=== PATIENT | female | born 1985 | race Two or more races ===

== ENCOUNTER 2018-02-11 14:09 | Inpatient (IN) | payer OTHER ==
[2018-02-11] MEDS ORDERED: AMPICILLIN SODIUM 2 GM VIAL ONE (14:57)
[2018-02-11] MEDS: DEXTROSE 5%-LACTATED RINGERS 1,000 ML IV SCH (15:00)
[2018-02-11] MEDS ORDERED: AMPICILLIN - 2 GM in SODIUM CHLORIDE 100 ML IVPB ONE (15:00)
[2018-02-11 15:49] VITALS: BMI 31.2
[2018-02-11 16:23] LABS: BASO % 0.5 % (0-2.0); EOS % 2.3 % (0-4.5); HEMATOCRIT 39.4 % (32.4-45.2); HEMOGLOBIN 12.6 GM/dL (10.7-15.3); LYMPH % 18.1 % (8-40); MCH 25.2 pg (25.7-33.7); MEAN CELL VOLUME 78.7 fl (80-96); MEAN PLT VOLUME 11.6 fl (7.5-11.1); MONO % 4.7 % (3.8-10.2); NEUT % 74.4 % (42.8-82.8); PLATELET COUNT 134 K/MM3 (134-434); RBC 5.01 M/mm3 (3.60-5.2); RDW 17.4 % (11.6-15.6); WHITE BLOOD COUNT 6.8 K/mm3 (4.0-10.0)
[2018-02-11 16:37] LABS: INR 0.96 (0.83-1.09); PROTHROMBIN TIME (PATIENT) 11.3 SEC (9.7-13.0)
[2018-02-11 16:39] LABS: ACTIVATED PTT 26.5 SECONDS (25.2-36.5)
[2018-02-11] MEDS ORDERED: TUBERCULIN PPD 5 TU/0.1ML SYRINGE (IN PATIENT USE ONLY) ID ONE (17:00)
[2018-02-11 17:15] LABS: ANION GAP 9 MMOL/L (8-16); BLOOD UREA NITROGEN 8 mg/dL (7-18); CALCIUM 8.5 mg/dL (8.5-10.1); CHLORIDE 102 mmol/L (98-107); CO2 26 mmol/L (21-32); CREATININE 0.6 mg/dL (0.55-1.3); GLUCOSE,RANDOM 67 mg/dL (74-106); SODIUM 136 mmol/L (136-145)
[2018-02-11] MEDS ORDERED: BUTORPHANOL TARTRATE 1 MG/ML VIAL IVPUSH PRN (18:00)
[2018-02-11] MEDS ORDERED: PROMETHAZINE HCL 25 MG/1 ML VIAL IVPB ONE (18:00)
--- NOTE | 2018-02-11 18:09 | PN ---
Progress Note (short form) - Note Progress Note: cx 1 cm 80 vx -2 mr, fhr cat 1, irregular mild contraction, GBS positve, started on amp. pitocin vs expectant management discussed , agrred to wait for spontaneous labor
[2018-02-11] MEDS ORDERED: AMPICILLIN SODIUM 1 GM VIAL ONE ×2 (18:12→22:25)
[2018-02-11] MEDS: AMPICILLIN - 1 GM in SODIUM CHLORIDE 100 ML IVPB SCH ×2 (18:33→23:00)
--- NOTE | 2018-02-11 19:19 | HP ---
Past Medical History - Primary Care Physician PCP:: Matthew Villeda - Admission Chief Complaint: 40.4 wekks, prom History of Present Illness: 32 yo f 40.2 weeks,c/o rom , clear fluid ,with mild low abdominal cramps, no fever, no bleeding, cx 1 cm,80 vx -2 mr, clear fhr cat 1, irregular comntraction, expectant management vs induction discussed , rba to each explained History Source: Patient Limitations to Obtaining History: No Limitations - Past Medical History Pulmonary: Yes: Asthma ...: 1 ...Para: 0 ...LMP: 05/03/17 ... Weeks Gestation by Dates: 40.4 ...EDC by Dates: 02/07/18 ...EDC by Sono: 02/07/18 - Past Surgical History Hx Myomectomy: No Hx Transabdominal Cerclage: No - Smoking History Smoking history: Never smoked Have you smoked in the past 12 months: No - Alcohol/Substance Use Hx Alcohol Use: No - Social History Usual Living Arrangement: Yes: With Spouse History of Recent Travel: No Home Medications - Allergies Allergies/Adverse Reactions: Allergies Allergy/AdvReac Type Severity Reaction Status Date / Time No Known Drug Allergies Allergy Verified 02/11/18 15:13 - Home Medications Home Medications: Ambulatory Orders Advair 250-50 Diskus 2 inh PO PRN 02/11/18 Albuterol Sulfate 2 inh PO PRN 02/11/18 Vitamins (Sjr) - 1 tab PO DAILY 02/11/18 Review of Systems - Review of Systems Constitutional: reports: No Symptoms Eyes: reports: No Symptoms HENT: reports: No Symptoms Neck: reports: No Symptoms Gastrointestinal: reports: No Symptoms Genitourinary: reports: No Symptoms Breasts: reports: No Symptoms Reported Musculoskeletal: reports: No Symptoms Neurological: reports: No Symptoms Endocrine: reports: No Symptoms Hematology/Lymphatic: reports: No Symptoms Psychiatric: reports: No Symptoms Physical Exam - Maternity Vital Signs: Vital Signs Temperature 98.2 F 02/11/18 18:00 Pulse Rate 86 02/11/18 19:00 Respiratory Rate 20 02/11/18 19:00 Blood Pressure 113/70 02/11/18 19:00 O2 Sat by Pulse Oximetry (%) Constitutional: Yes: Well Nourished, No Distress, Calm Eyes: Yes: WNL, Conjunctiva Clear, EOM Intact HENT: Yes: WNL, Atraumatic, Normocephalic Neck: Yes: WNL, Supple, Trachea Midline Cardiovascular: Yes: WNL, Regular Rate and Rhythm Breast(s): Yes: WNL - Abdominal Exam/OB Fundal Height: 38 Number of Fetuses: Single Presentation: Vertex Contractions: Yes Regularity: Irregular Intensity: Mild Monitor Mode: External Heart Rate Location: [facility] Category: I Accelerations: Uniform Decelerations: None - Vaginal Exam/OB Vaginal Bleediing: No Speculum Exam: No Dilatation (cm): 1 cm Effacement (%): 80 Amniotic Membrane Status: Ruptured Nitrazine Test: Positive Amniotic Fluid: Yes: Clear Presentation: Vertex/Position Station: -2 - Physical Exam Extremities: Yes: WNL Edema: LLE: Trace, RLE: Trace - Labs Lab Results: CBC, BMP 02/11/18 15:40 02/11/18 15:40 Hemorrhage Risk Assessment - Risk Factors Medium Risk Factors: Yes: None Risk Score: 1 Risk Level: Medium Risk Problem List - Problems (1) Postmaturity , 40-42 weeks gestation Code(s): O48.0 - POST-TERM (2) PROM (premature rupture of membranes) Code(s): O42.90 - WILMA ROM, 7TH0 BETW RUPT & ONST LABR, UNSP WEEKS OF GEST Qualifiers: PROM onset of labor timing: unspecified duration between rupture of membranes and onset of labor PROM gestational age: full term Qualified Code( s): O42.92 - Full-term premature rupture of membranes, unspecified as to length of time between rupture and onset of labor (3) GBS (group B Streptococcus carrier), +RV culture, currently Code(s): O99.820 - STREPTOCOCCUS B CARRIER STATE COMPLICATING Assessment/Plan plan admit, m GBS prophylaxsis observation, if not in labor after midnight will start pitocin management discussed with patient
[2018-02-11] MEDS ORDERED: BUTORPHANOL TARTRATE 1 MG/ML VIAL IVPUSH ONE (22:30)
[2018-02-11] MEDS ORDERED: PROMETHAZINE HCL 25 MG/1 ML VIAL IVPUSH ONE (22:30)
[2018-02-11] MEDS ORDERED: BUTORPHANOL TARTRATE 1 MG/ML VIAL ONE ×2 (22:33)
[2018-02-11] MEDS ORDERED: PROMETHAZINE HCL 25 MG/1 ML VIAL ONE (22:34)
[2018-02-12] MEDS ORDERED: OXYTOCIN 30 UNITS in 0.9% NS 30 UNIT/500 ML INFUS.BAG IVPB SCH (00:15)
[2018-02-12] MEDS ORDERED: OXYTOCIN 30 UNITS in 0.9% NS 30 UNIT/500 ML INFUS.BAG IVPB ONE (00:38)
[2018-02-12] MEDS ORDERED: BUTORPHANOL TARTRATE 1 MG/ML VIAL ONE ×2 (02:44)
[2018-02-12] MEDS ORDERED: PROMETHAZINE HCL 25 MG/1 ML VIAL ONE (02:45)
[2018-02-12] MEDS ORDERED: AMPICILLIN SODIUM 1 GM VIAL ONE ×6 (02:55→23:34)
[2018-02-12] MEDS ORDERED: BUTORPHANOL TARTRATE 1 MG/ML VIAL IVPUSH ONE (03:00)
[2018-02-12] MEDS: AMPICILLIN - 1 GM in SODIUM CHLORIDE 100 ML IVPB SCH ×6 (03:00→23:32)
[2018-02-12] MEDS ORDERED: PROMETHAZINE HCL 25 MG/1 ML VIAL IVPUSH ONE (03:00)
[2018-02-12] MEDS ORDERED: FENTANYL/BUPIVACAINE/NS/PF - PCEA - 50 ML DISP.SYRIN EP ONE ×4 (08:25→19:54)
[2018-02-12] MEDS ORDERED: ELECTROLYTE-148 SOLN 1,000 ML IV SCH ×2 (08:30→23:30)
[2018-02-12] MEDS ORDERED: NALOXONE HCL 0.4 MG/ML VIAL IVPUSH PRN (08:32)
[2018-02-12] MEDS ORDERED: LIDO 2%/EPI 1:200000 PRESRVFRE (20 ML SDVIAL) ONE (08:33)
[2018-02-12] MEDS ORDERED: FENTANYL/BUPIVACAINE/NS/PF - PCEA - 50 ML DISP.SYRIN EP SCH (08:45)
[2018-02-12] MEDS: DEXTROSE 5%-LACTATED RINGERS 1,000 ML IV SCH (15:00)
--- NOTE | 2018-02-12 15:57 | PN ---
Progress Note, Labor Vaginal Exam #1 Labor Exam Date: 02/12/18 Labor Exam Time: 15:30 Heart Rate (range): 150's + accels, occasional varriable decels Dilatation: 6-7cm Effacement (%): 90% Amniotic Membrane Status: Ruptured Presentation: Vertex/Position Station: -1 Remarks: Overall reassuring MF status Patient comfortable FHR Category 2 with very reassuring features, + scalp stimulation continue monitoring progress of labor EFW 7lb
[2018-02-12] MEDS ORDERED: BUPIVACAINE HCL/PF 0.25% (2.5MG/ML) 10 ML VIAL ONE (21:52)
[2018-02-12] MEDS ORDERED: CITRIC ACID/SODIUM CITRATE 30 ML UNIT-DOSE CUP PO ONE (23:22)
--- NOTE | 2018-02-12 23:22 | PN ---
Progress Note (short form) - Note Progress Note: cx 6 cm 80, vx -1 mr, fhr cat 2 with variable decel, requesting c/s rba discussed Problem List - Problems (1) Postmaturity , 40-42 weeks gestation Code(s): O48.0 - POST-TERM (2) PROM (premature rupture of membranes) Code(s): O42.90 - WILMA ROM, 7TH0 BETW RUPT & ONST LABR, UNSP WEEKS OF GEST Qualifiers: PROM onset of labor timing: unspecified duration between rupture of membranes and onset of labor PROM gestational age: full term Qualified Code( s): O42.92 - Full-term premature rupture of membranes, unspecified as to length of time between rupture and onset of labor (3) GBS (group B Streptococcus carrier), +RV culture, currently Code(s): O99.820 - STREPTOCOCCUS B CARRIER STATE COMPLICATING
[2018-02-13] MEDS ORDERED: LIDO 2%/EPI 1:200000 PRESRVFRE (20 ML SDVIAL) ONE (00:05)
[2018-02-13] MEDS ORDERED: ceFAZolin SODIUM 1 GM VIAL ONE ×3 (00:20→16:36)
[2018-02-13] MEDS ORDERED: OXYTOCIN 10 UNITS/ML VIAL ONE (00:26)
[2018-02-13] MEDS ORDERED: morphine SULFATE/Preservative Free 0.5 MG/ML (1cc Syringe) EP ONE (00:35)
[2018-02-13] MEDS ORDERED: ONDANSETRON 4 MG/2 ML VIAL IVPUSH PRN (00:37)
[2018-02-13] MEDS ORDERED: IBUPROFEN 600 MG TABLET (FP) PO PRN (01:20)
[2018-02-13] MEDS ORDERED: BENZOCAINE 28 GM HEMORRHOIDAL OINTMENT PR PRN (01:20)
[2018-02-13] MEDS ORDERED: METHYLERGONOVINE MALEATE 0.2 MG/1 ML AMP IM PRN (01:20)
[2018-02-13] MEDS ORDERED: BENZOCAINE 20% 57 GM BOTTLE TP PRN (01:20)
[2018-02-13] MEDS ORDERED: WITCH HAZEL 50% (TUCKS) 40 PAD/JAR PAD TP PRN (01:20)
[2018-02-13] MEDS ORDERED: oxyCODONE HCL 5 MG TABLET PO PRN ×2 (01:20)
[2018-02-13] MEDS ORDERED: diphenhydrAMINE HCL 25 MG CAPSULE (FP) PO PRN (01:20)
[2018-02-13] MEDS ORDERED: IBUPROFEN 800 MG/8 ML IJ IVPB PRN (01:20)
[2018-02-13] MEDS ORDERED: ACETAMINOPHEN 325 MG TABLET (FP) PO PRN (01:21)
[2018-02-13] MEDS ORDERED: DEXTROSE 5%-LACTATED RINGERS 1,000 ML IV SCH (01:30)
[2018-02-13] MEDS ORDERED: OXYTOCIN 20 UNITS in 0.9% NS 20 UNIT/1,000 ML INFUS.BAG IV SCH (01:30)
[2018-02-13 01:34] LABS: VENOUS PC02 44.6 mmHg (38-52); VENOUS PH 7.35 (7.32-7.42); VENOUS PO2 26.2 mmHg (28-48)
[2018-02-13 01:38] LABS: ARTERIAL BLD GAS O2 SATURATION 8.3 % (90-98.9); ARTERIAL BLOOD GAS BASE EXCESS -1.6 meq/l (-2-2); ARTERIAL BLOOD GAS PCO2 59.2 mmHg (35-45); ARTERIAL BLOOD GAS pH 7.28 (7.35-7.45)
[2018-02-13 01:48] LABS: ARTERIAL BLOOD GAS PO2 10.9 mmHg (80-100)
[2018-02-13] MEDS ORDERED: CEFAZOLIN 1 GM in DEXTROSE 5%-WATER - 50 ML IVPB SCH (02:00)
[2018-02-13] MEDS: AMPICILLIN - 1 GM in SODIUM CHLORIDE 100 ML IVPB SCH (04:42)
[2018-02-13] MEDS ORDERED: OXYTOCIN 20 UNITS in 0.9% NS 20 UNIT/1,000 ML INFUS.BAG IV ONE (06:09)
--- NOTE | 2018-02-13 06:18 | PN ---
Progress Note (short form) - Note Progress Note: pod 0 , doing well, no c/o Last Vital Signs Temp Pulse Resp BP Pulse Ox 98.7 F 95 H 20 122/84 96 02/12/18 23:00 02/13/18 05:08 02/13/18 05:08 02/13/18 05:08 02/13/18 05:08 abdomen soft, no distension, no cva incision dry, clean lochia mild plan ambulate, cbc in am advance diet Problem List - Problems (1) Postmaturity , 40-42 weeks gestation Code(s): O48.0 - POST-TERM (2) PROM (premature rupture of membranes) Code(s): O42.90 - WILMA ROM, 7TH0 BETW RUPT & ONST LABR, UNSP WEEKS OF GEST Qualifiers: PROM onset of labor timing: unspecified duration between rupture of membranes and onset of labor PROM gestational age: full term Qualified Code( s): O42.92 - Full-term premature rupture of membranes, unspecified as to length of time between rupture and onset of labor (3) GBS (group B Streptococcus carrier), +RV culture, currently Code(s): O99.820 - STREPTOCOCCUS B CARRIER STATE COMPLICATING
[2018-02-13] MEDS ORDERED: DEXTROSE 5%-WATER - 50 ML IVPB ONE ×2 (09:02→16:36)
[2018-02-13] MEDS: CEFAZOLIN 1 GM in DEXTROSE 5%-WATER - 50 ML IVPB SCH ×2 (09:07→17:00)
--- NOTE | 2018-02-13 09:17 | PN ---
Progress Note (short form) - Note Progress Note: Anesthesia POD#1 S/P under Epidural and DM VSS,no pain,no N/V,legs are strong. Kim Rosas MD.
--- NOTE | 2018-02-13 11:51 | OP ---
DATE OF OPERATION: 02/13/2018 PREOPERATIVE DIAGNOSIS: , 40 weeks, prolonged rupture of membranes, failure to dilate, failure of Pitocin induction. POSTOPERATIVE DIAGNOSIS: , 40 weeks, prolonged rupture of membranes, failure to dilate, failure of Pitocin induction. PROCEDURE: Primary low segment transverse section. SURGEON: Leanna Villeda MD DUCT CLEANER: CHRISTIAN Rowell ANESTHESIA: Epidural. ANESTHESIOLOGIST: Rocky Douglass MD ESTIMATED BLOOD LOSS: 500 mL. OPERATION: The patient was taken to the operating room. Under adequate epidural anesthesia, abdomen and perineum were prepped and draped. Pfannenstiel abdominal skin incision was made. Abdominal wall was cut layer by layer until peritoneum was exposed and incised. Upon entering the abdominal cavity, lower uterine segment was identified, and uterovesical fold of peritoneum was established, bladder was pushed down. Then, with the lower blade of the Bonilla retractor in the pelvis, a low transverse uterine incision was made. Incision extended laterally. Amniotic sac was entered. Clear, head delivered from right occiput posterior position. Nasopharynx was suctioned, and live baby boy was delivered without any difficulty. Placenta was delivered manually. Uterine cavity was cleaned of all remaining tissue. Uterine incision was closed in 2 layers, 1st layer with 0 Biosyn continuous suture, the 2nd layer with 0 Biosyn imbricating the 1st layer. Bladder flap was closed with 0 Biosyn continuous suture. Both tubes and ovaries were checked, were normal. No active bleeding was seen. All the lap pad, sponge, instrument counts were correct. Then, peritoneum was closed with 0 Biosyn continuous suture, muscles were brought together with interrupted suture of 0 Biosyn, fascia was closed with 0 Biosyn continuous suture, subcutaneous fat with interrupted suture of 0 Biosyn, and the skin was closed with 4-0 Biosyn subcuticular suture. Patient tolerated the procedure well, left the OR in good condition. LEANNA VILLEDA M.D. [id number]
[2018-02-13] MEDS: IBUPROFEN 600 MG TABLET (FP) PO PRN (20:43)
[2018-02-13] MEDS: SIMETHICONE 80 MG TAB.CHEW (FP) PO PRN (20:43)
[2018-02-13] MEDS: ACETAMINOPHEN 325 MG TABLET (FP) PO PRN (20:43)
[2018-02-14] MEDS ORDERED: BISACODYL 10 MG SUPP.RECT PR PRN (01:20)
--- NOTE | 2018-02-14 07:26 | PN ---
Post Progress Note - Subjective Subjective: Feels incision pain, but overall comfortable Post Day: 1 Type of Delivery: Primary C/S Vital Signs: Vital Signs Temperature 98.7 F 02/13/18 21:00 Pulse Rate 85 02/13/18 21:00 Respiratory Rate 18 02/14/18 00:00 Blood Pressure 105/68 02/13/18 21:00 O2 Sat by Pulse Oximetry (%) 96 02/13/18 05:08 Breast Exam: Yes: Soft Uterus: Yes: Fundus Firm, Non-tender Incision: Yes: Dressing dry and intact Abdomen/GI: Yes: Abdomen soft Lochia: Yes: Rubra Lochia, amount: Small Extremities: Yes: Calves non-tender Perineum: Yes: Intact Activity: Ambulating - Labs Labs: CBC WBC 6.8 K/mm3 (4.0-10.0) 02/11/18 15:40 RBC 5.01 M/mm3 (3.60-5.2) 02/11/18 15:40 Hgb 12.6 GM/dL (10.7-15.3) 02/11/18 15:40 Hct 39.4 % (32.4-45.2) 02/11/18 15:40 MCV 78.7 fl (80-96) L 02/11/18 15:40 MCH 25.2 pg (25.7-33.7) L 02/11/18 15:40 MCHC 32.0 g/dl (32.0-36.0) 02/11/18 15:40 RDW 17.4 % (11.6-15.6) H 02/11/18 15:40 Plt Count 134 K/MM3 (134-434) 02/11/18 15:40 MPV 11.6 fl (7.5-11.1) H 02/11/18 15:40 Absolute Neuts (auto) 5.0 K/mm3 (1.5-8.0) 02/11/18 15:40 Neutrophils % 74.4 % (42.8-82.8) 02/11/18 15:40 Lymphocytes % 18.1 % (8-40) 02/11/18 15:40 Monocytes % 4.7 % (3.8-10.2) 02/11/18 15:40 Eosinophils % 2.3 % (0-4.5) 02/11/18 15:40 Basophils % 0.5 % (0-2.0) 02/11/18 15:40 Nucleated RBC % 0 % (0-0) 02/11/18 15:40 Assessment/Plan 32yo P1 nor s/p Primary c/section VSS, Afebrile Doing well Encourage ambulation continue routine care
[2018-02-14] MEDS: IBUPROFEN 600 MG TABLET (FP) PO PRN ×3 (07:27→18:02)
[2018-02-14] MEDS: ACETAMINOPHEN 325 MG TABLET (FP) PO PRN ×3 (07:28→18:03)
[2018-02-14] MEDS: SIMETHICONE 80 MG TAB.CHEW (FP) PO PRN ×3 (07:29→18:04)
[2018-02-14 07:35] LABS: BASO % 0.2 % (0-2.0); EOS % 1.6 % (0-4.5); HEMATOCRIT 34.5 % (32.4-45.2); HEMOGLOBIN 10.5 GM/dL (10.7-15.3); LYMPH % 17.3 % (8-40); MCH 24.1 pg (25.7-33.7); MCHC 30.4 g/dl (32.0-36.0); MEAN CELL VOLUME 79.3 fl (80-96); MEAN PLT VOLUME 11.1 fl (7.5-11.1); MONO % 4.2 % (3.8-10.2); NEUT % 76.7 % (42.8-82.8); PLATELET COUNT 125 K/MM3 (134-434); RBC 4.36 M/mm3 (3.60-5.2); RDW 17.5 % (11.6-15.6); WHITE BLOOD COUNT 10.8 K/mm3 (4.0-10.0)
[2018-02-14] MEDS ORDERED: MAG HYDROX/AL HYDROX/SIMETH 30 ML UNIT-DOSE CUP PO PRN (07:46)
[2018-02-14] MEDS: ENOXAPARIN NA (PORCINE) 40 MG/0.4 ML DISP.SYRIN SQ SCH (09:04)
[2018-02-15] MEDS: SIMETHICONE 80 MG TAB.CHEW (FP) PO PRN (05:43)
[2018-02-15] MEDS: ACETAMINOPHEN 325 MG TABLET (FP) PO PRN ×2 (05:43→16:40)
[2018-02-15] MEDS: IBUPROFEN 600 MG TABLET (FP) PO PRN ×2 (05:44→16:39)
--- NOTE | 2018-02-15 08:46 | PN ---
Post Progress Note - Subjective Subjective: No complains, pain well controlled Post Day: 2 Type of Delivery: Primary C/S Vital Signs: Vital Signs Temperature 98.1 F 02/14/18 22:00 Pulse Rate 83 02/14/18 22:00 Respiratory Rate 18 02/14/18 22:00 Blood Pressure 116/73 02/14/18 22:00 O2 Sat by Pulse Oximetry (%) 96 02/13/18 05:08 Breast Exam: Yes: Soft Uterus: Yes: Fundus Firm Incision: Yes: Sutures intact Abdomen/GI: Yes: Abdomen soft Lochia: Yes: Rubra Lochia, amount: Small Extremities: Yes: Calves non-tender Perineum: Yes: Intact Activity: Ambulating - Labs Labs: CBC WBC 10.8 K/mm3 (4.0-10.0) H 02/14/18 06:00 RBC 4.36 M/mm3 (3.60-5.2) 02/14/18 06:00 Hgb 10.5 GM/dL (10.7-15.3) L 02/14/18 06:00 Hct 34.5 % (32.4-45.2) 02/14/18 06:00 MCV 79.3 fl (80-96) L 02/14/18 06:00 MCH 24.1 pg (25.7-33.7) L 02/14/18 06:00 MCHC 30.4 g/dl (32.0-36.0) L 02/14/18 06:00 RDW 17.5 % (11.6-15.6) H 02/14/18 06:00 Plt Count 125 K/MM3 (134-434) L 02/14/18 06:00 MPV 11.1 fl (7.5-11.1) 02/14/18 06:00 Absolute Neuts (auto) 8.3 K/mm3 (1.5-8.0) H 02/14/18 06:00 Neutrophils % 76.7 % (42.8-82.8) 02/14/18 06:00 Lymphocytes % 17.3 % (8-40) 02/14/18 06:00 Monocytes % 4.2 % (3.8-10.2) 02/14/18 06:00 Eosinophils % 1.6 % (0-4.5) 02/14/18 06:00 Basophils % 0.2 % (0-2.0) 02/14/18 06:00 Nucleated RBC % 0 % (0-0) 02/14/18 06:00 Assessment/Plan 32yo P1 nor s/p Primary c/section VSS, Afebrile Doing well Encourage ambulation continue routine care
[2018-02-15] MEDS: ENOXAPARIN NA (PORCINE) 40 MG/0.4 ML DISP.SYRIN SQ SCH (09:49)
[2018-02-15] MEDS ORDERED: SENNOSIDES/DOCUSATE COMBO (SENNA PLUS) TABLET (UD) PO PRN (22:00)
[2018-02-16] MEDS: IBUPROFEN 600 MG TABLET (FP) PO PRN ×2 (00:01→07:38)
[2018-02-16] MEDS: SIMETHICONE 80 MG TAB.CHEW (FP) PO PRN ×2 (07:37)
[2018-02-16] MEDS: ACETAMINOPHEN 325 MG TABLET (FP) PO PRN ×2 (07:38)
[2018-02-16 08:01] VITALS: BP 122/73; PULSE 71; TEMP 97.9
[2018-02-16 08:05] LABS: BASO % 0.4 % (0-2.0); HEMATOCRIT 31.6 % (32.4-45.2); HEMOGLOBIN 9.7 GM/dL (10.7-15.3); MCH 24.1 pg (25.7-33.7); MCHC 30.6 g/dl (32.0-36.0); MEAN CELL VOLUME 78.7 fl (80-96); MEAN PLT VOLUME 10.3 fl (7.5-11.1); MONO % 4.2 % (3.8-10.2); NEUT % 70.4 % (42.8-82.8); PLATELET COUNT 153 K/MM3 (134-434); RBC 4.02 M/mm3 (3.60-5.2); RDW 17.4 % (11.6-15.6); WHITE BLOOD COUNT 7.5 K/mm3 (4.0-10.0)
[2018-02-16] MEDS: ENOXAPARIN NA (PORCINE) 40 MG/0.4 ML DISP.SYRIN SQ SCH (09:11)
--- NOTE | 2018-02-16 22:47 | DS ---
Physical Exam-HOTEL OR MOTEL MANAGER Vital Signs: Vital Signs Temperature 97.9 F 02/16/18 08:00 Pulse Rate 71 02/16/18 08:00 Respiratory Rate 20 02/16/18 08:00 Blood Pressure 122/73 02/16/18 08:00 O2 Sat by Pulse Oximetry (%) 96 02/13/18 05:08 Constitutional: Yes: Well Nourished, No Distress, Calm Eyes: Yes: WNL, Conjunctiva Clear, EOM Intact HENT: Yes: WNL, Atraumatic, Normocephalic Neck: Yes: WNL, Supple, Trachea Midline Cardiovascular: Yes: WNL, Regular Rate and Rhythm Respiratory: Yes: WNL, Regular, CTA Bilaterally Gastrointestinal: Yes: WNL, Normal Bowel Sounds, Soft ...Rectal Exam: Yes: WNL Renal/: Yes: WNL Pelvis: Yes: WNL External Genitalia: Yes: Normal Internal Exam Deferred: Yes Vaginal Exam: Yes: Normal ....Post : Yes: Uterus firm, Uterus non-tender Breast(s): Yes: WNL Musculoskeletal: Yes: WNL Extremities: Yes: WNL Integumentary: Yes: WNL Wound/Incision: Yes: Clean/Dry, Well Approximated Neurological: Yes: WNL, Alert, Oriented ...Motor Strength: WNL Psychiatric: Yes: WNL, Alert, Oriented Labs: CBC, BMP 02/16/18 07:15 02/11/18 15:40 Delivery - Delivery Type of Anesthesia: Epidural Episiotomy/Laceration: None EBL (cc): 500 Delivery, Single - Stages of Labor Date 1st Stage Initiatied: 02/12/18 Time 1st Stage Initiated: 00:00 Date of Delivery: 02/13/18 Time of Delivery: 00:32 Time Placenta Delivered: 00:33 - Condition of Skin Carver/Lead Coater Present: Stuart: Slick Woodruff Infant Gender: Male Weight: 7 lb 11 oz Position: OP Total Hours ROM (Hrs/Mins): 11hr 4mins. - 1 Minute Total Score: 9 5 Minutes Total Score: 9 - Feeding Plan Initial Plan: Exclusive throughout hospitalization Discharge Summary Reason For Visit: LABOR ADMISSION Procedures: Principal: c/section Condition: Good - Instructions Diet, Activity, Other Instructions: return to office in 1 week for incision check and 6 weeks for check. Referrals: Matthew Villeda MD [Staff Physician] - Eunice Hoffman MD [Staff Physician] - Disposition: HOME - Home Medications Comprehensive Discharge Medication List: Ambulatory Orders Advair 250-50 Diskus 2 inh PO PRN 02/11/18 Albuterol Sulfate 2 inh PO PRN 02/11/18 Vitamins (Sjr) - 1 tab PO DAILY 02/11/18 Oxycodone HCl/Acetaminophen [Percocet 5-325 mg Tablet -] 1 - 2 tab PO Q6H PRN # 20 tab MDD 6 02/16/18
--- NOTE | 2018-02-23 14:56 | PATH ---
Surgical Pathology Report Patient Name: FRANCISCO NEWBY [facility]. Rec. #: [id number] /Age/Gender: 1985 (Age: 32) / F Account: [id number] Location: [facility] OBS/CASH MANAGEMENT ASSOCIATE Taken: 02/12/2018 Received: 02/13/2018 Reported: 02/23/2018 Physicians: Matthew Villeda M.D. Specimen(s) Received PLACENTA Clinical History , 40.4 weeks gestation, PROM Final Diagnosis PLACENTA, SECTION: 622 G THIRD TRIMESTER PLACENTA WITH TRIVASCULAR UMBILICAL CORD AND PLACENTAL MEMBRANES WITH MECONIUM LADEN MACROPHAGES. Electronically Signed Evelyn Arriaga M.D. Gross Description The specimen is received fresh labeled placenta and is a 622 gram, 19.0 x 15.0 x 3.7 cm. placenta with attached membranes and umbilical cord. The attached membranes are magana green, meconium stained, translucent with focal opacities and insert marginally. The umbilical cord measures 34 cm. in length and averages 1 cm. in diameter. The cord inserts eccentrically, 5 cm. to the nearest margin. No true knots or strictures are identified. Cut surface of the umbilical cord reveals 3 vessels. The surface is abebe green, meconium stained with minimal fibrin deposition and appropriate caliber vessels. The maternal surface is red-brown with focal defects. Sectioning reveals red-brown, spongy parenchyma. No lesions are identified. Insulation Nozzleman sections are submitted in three cassettes as follows: 1- membrane rolls and umbilical cord; 2-3- full thickness sections of placenta. 02/20/2018 [facility]
== END 2018-02-16 12:00 | disposition home or self-care (01) | DRG 788 ==
LOC: JLDR 14:09 → J3W 02-12 23:20 → JLDR 02-12 23:43 → J3W 02-13 03:31
PROVIDERS: ADMIT Obstetrics & Gynecology; ATTEND Obstetrics & Gynecology
PROC: 10D00Z1 Extraction of Products of Conception, Low, Open Approach (ICD-10-PCS; principal; 2018-02-13)
DX: O48.0 Post-term pregnancy (principal); O42.92 Full-term premature rupture of membranes, unspecified as to length of time between rupture and onset of labor; O99.824 Streptococcus B carrier state complicating childbirth; O62.0 Primary inadequate contractions; Z3A.40 40 weeks gestation of pregnancy; Z37.0 Single live birth
CPT/HCPCS: 36415; 36600; 80048; 82803; 85025; 85610; 85730; 86593; 86850; 86900; 86901; 87389; 88307-TC